=== PATIENT | female | born 1940 | race Caucasian/White ===

== ENCOUNTER 2016-07-23 07:19 | Outpatient (CLI) | payer MEDICARE, OTHER ==
[2016-07-23 09:36] LABS: Hemoglobin A1c 5.1 % (4.0-6.0)
== END 2016-07-23 07:20 | disposition home or self-care (01) ==
LOC: NAV LABSP 07:19
PROVIDERS: ATTEND Internal Medicine
DX: Z51.81 Encounter for therapeutic drug level monitoring (principal); Z79.01 Long term (current) use of anticoagulants; E10.9 Type 1 diabetes mellitus without complications; E78.00 Pure hypercholesterolemia, unspecified; I10 Essential (primary) hypertension
CPT/HCPCS: 36415; 83036

== ENCOUNTER 2016-10-15 07:42 | Outpatient (CLI) | payer MEDICARE, OTHER ==
[2016-10-15 09:28] LABS: #Eosinphils 0.1 thou/uL (0.0-0.7); #Lymphocytes 0.9 thou/uL (1.20-3.40); #Monocytes 0.3 thou/uL (0.11-0.59); #Neutrophils 2.1 thou/uL (1.40-6.50); %Basophils 0.8 % (0.0-1.0); %Eosinophils 2.3 % (0.0-10.0); %Lymphocytes 26.6 % (21.0-51.0); %Monocytes 9.8 % (0.0-10.0); %Neutrophils 60.5 % (42.0-75.0); ALT (SGPT) 25 U/L (0-55); AST (SGOT) 24 U/L (5-34); Albumin 3.8 g/dL (3.4-4.8); Alkaline Phosphatase 76 U/L (40-150); Anion Gap 16 mmol/L (10-20); BUN (Urea Nitrogen) 11 mg/dL (9.8-20.1); Bilirubin, Total 0.5 mg/dL (0.2-1.2); Calc. Creatinine Clearance 0 mL/min (70-130); Calcium 9.3 mg/dL (7.8-10.44); Carbon Dioxide 23 mmol/L (23-31); Chloride 106 mmol/L (98-107); Cholesterol 144 mg/dL (< 200 Desired); Estimated GFR-MDRD 76; Globulin 2.5 g/dL (2.4-3.5); Glucose 83 mg/dL (83-110); HDL Cholesterol 48 mg/dL (>60 Neg Risk); Hemoglobin 13.2 g/dL (12.0-16.0); LDL Cholesterol, Calculated 83 mg/dL; Mean Corpuscular HGB CONC 32.2 g/dL (32.0-36.0); Mean Corpuscular Hemoglobin 33.7 pg (27.0-31.0); Mean Platelet Volume 7.9 fL (7.4-10.4); Platelet Count 111 thou/uL (130-400); Potassium 4.5 mmol/L (3.5-5.1); Protein, Total 6.3 g/dL (5.8-8.1); RBC Distribution Width 12.6 % (11.5-14.5); Red Blood Cell (RBC) Count 3.92 mill/uL (4.20-5.40); Sodium 140 mmol/L (136-145); Triglycerides 67 mg/dL (Less than 150); White Blood Cell (WBC) Count 3.5 thou/uL (4.8-10.8)
[2016-10-15 09:32] LABS: Hemoglobin A1c 4.9 % (4.0-6.0)
== END 2016-10-15 07:43 | disposition home or self-care (01) ==
LOC: NAV LABSP 07:42
PROVIDERS: ATTEND Internal Medicine
DX: E78.00 Pure hypercholesterolemia, unspecified (principal); E10.9 Type 1 diabetes mellitus without complications; I10 Essential (primary) hypertension; Z79.01 Long term (current) use of anticoagulants
CPT/HCPCS: 36415; 80053; 80061; 83036; 85025

== ENCOUNTER 2016-10-20 07:18 | Outpatient (CLI) | payer MEDICARE, OTHER ==
[2016-10-20 11:14] LABS: #Eosinphils 0.1 thou/uL (0.0-0.7); #Lymphocytes 0.6 thou/uL (1.20-3.40); #Monocytes 0.3 thou/uL (0.11-0.59); #Neutrophils 2.5 thou/uL (1.40-6.50); %Basophils 0.6 % (0.0-1.0); %Eosinophils 2.9 % (0.0-10.0); %Lymphocytes 15.6 % (21.0-51.0); %Monocytes 9.5 % (0.0-10.0); %Neutrophils 71.4 % (42.0-75.0); Mean Corpuscular HGB CONC 31.7 g/dL (32.0-36.0); Mean Platelet Volume 7.2 fL (7.4-10.4); Platelet Count 105 thou/uL (130-400); RBC Distribution Width 12.2 % (11.5-14.5); Red Blood Cell (RBC) Count 3.64 mill/uL (4.20-5.40); White Blood Cell (WBC) Count 3.5 thou/uL (4.8-10.8)
== END 2016-10-20 07:19 | disposition home or self-care (01) ==
LOC: NAV LABSP 07:18
PROVIDERS: ATTEND Internal Medicine
DX: I48.91 Unspecified atrial fibrillation (principal); M81.0 Age-related osteoporosis without current pathological fracture; I10 Essential (primary) hypertension; E11.9 Type 2 diabetes mellitus without complications; R05 Cough; R52 Pain, unspecified
CPT/HCPCS: 36415; 85025

== ENCOUNTER 2017-01-14 07:36 | Outpatient (CLI) | payer MEDICARE, OTHER ==
[2017-01-14 08:36] LABS: Hemoglobin A1c 5.4 % (4.0-6.0)
== END 2017-01-14 07:37 | disposition home or self-care (01) ==
LOC: NAV LABSP 07:36
PROVIDERS: ATTEND Internal Medicine
DX: E78.00 Pure hypercholesterolemia, unspecified (principal); E10.9 Type 1 diabetes mellitus without complications; I10 Essential (primary) hypertension; Z79.01 Long term (current) use of anticoagulants
CPT/HCPCS: 36415; 83036

== ENCOUNTER 2017-04-06 07:50 | Outpatient (CLI) | payer MEDICARE, MEDICAID ==
[2017-04-06 08:19] LABS: Hemoglobin A1c 5.2 % (4.0-6.0)
[2017-04-06 08:21] LABS: ALT (SGPT) 20 U/L (8-55); AST (SGOT) 20 U/L (5-34); Albumin 3.6 g/dL (3.4-4.8); Alkaline Phosphatase 70 U/L (40-150); Anion Gap 13 mmol/L (10-20); BUN (Urea Nitrogen) 13 mg/dL (9.8-20.1); Bilirubin, Total 0.4 mg/dL (0.2-1.2); Calc. Creatinine Clearance 0 mL/min (70-130); Calcium 9.6 mg/dL (7.8-10.44); Carbon Dioxide 26 mmol/L (23-31); Cardiac Risk 3.9 (Less than 4.5); Chloride 106 mmol/L (98-107); Cholesterol 166 mg/dl (< 200 Desired); Estimated GFR-MDRD 68; Globulin 2.4 g/dL (2.4-3.5); Glucose 85 mg/dL (83-110); HDL Cholesterol 43 mg/dL (>60 Neg Risk); LDL Cholesterol, Calculated 106 mg/dL; Potassium 4.5 mmol/L (3.5-5.1); Sodium 140 mmol/L (136-145); Triglycerides 84 mg/dL (Less than 150)
[2017-04-06 08:44] LABS: #Monocytes 0.2 thou/uL (0.11-0.59); #Neutrophils 1.6 thou/uL (1.40-6.50); %Basophils 0.7 % (0.0-1.0); %Eosinophils 1.8 % (0.0-10.0); %Lymphocytes 30.7 % (21.0-51.0); %Monocytes 8.1 % (0.0-10.0); %Neutrophils 58.7 % (42.0-75.0); Hemoglobin 11.9 g/dL (12.0-16.0); Mean Corpuscular HGB CONC 31.7 g/dL (32.0-36.0); Mean Corpuscular Hemoglobin 32.5 pg (27.0-31.0); Mean Platelet Volume 9.2 fL (7.4-10.4); Platelet Count 104 thou/uL (130-400); RBC Distribution Width 12.3 % (11.5-14.5); Red Blood Cell (RBC) Count 3.66 mill/uL (4.20-5.40); White Blood Cell (WBC) Count 2.7 thou/uL (4.8-10.8)
[2017-04-06 09:32] LABS: Anisocytosis SLIGHT = 6-15 cells (100X) (0-5/hpf); Macrocytosis SLIGHT = 6-15 cells (100X) (0-5/hpf)
[2017-04-06 09:33] LABS: PLT Morphology Comment Appears Decreased
[2017-04-06 09:37] LABS: #Lymphocytes 0.8 thou/uL (1.20-3.40)
[2017-04-06 09:43] LABS: RBC Morphology Normal
== END 2017-04-06 07:51 | disposition home or self-care (01) ==
LOC: NAVSJIPCSP 07:50 → NAV LABSP 07:51
PROVIDERS: ATTEND Internal Medicine
DX: Z51.81 Encounter for therapeutic drug level monitoring (principal); Z79.899 Other long term (current) drug therapy
CPT/HCPCS: 80053; 80061; 83036; 85025

== ENCOUNTER 2017-06-16 20:08 | Emergency (ER) | payer MEDICARE, OTHER | END 2017-06-16 21:52 | LOC: NAV ERS 20:08 | DX: R13.10 Dysphagia, unspecified (principal); I10 Essential (primary) hypertension; E11.9 Type 2 diabetes mellitus without complications; F20.9 Schizophrenia, unspecified | CPT/HCPCS: 99284 ==

== ENCOUNTER 2017-09-27 16:10 | Inpatient (IN) | payer MEDICARE, MEDICAID ==
[2017-09-27 16:36] LABS: Bilirubin Negative (Negative); Blood, Urine Small (Negative); Glucose, Urine (Dipstick) Negative (Negative); Leukocyte Large (Negative); Nitrite Positive (Negative); Protein, Urine (Dipstick) 100 mg/dL (Neg-Trace); Specific Gravity, Urine 1.025 (1.005-1.030)
[2017-09-27 16:37] LABS: Bacteria/HPF 4+ HPF (None Seen); Clarity Hazy (Clear); RBC/HPF 0-3 HPF (0-3); Squamous Epithelial 0-3 HPF (0-3)
--- NOTE | 2017-09-27 17:01 | RAD ---
PORTABLE FRONTAL CHEST RADIOGRAPH 09/27/17 COMPARISON: 08/19/15 HISTORY: Short of breath/dyspnea. FINDINGS: The cardiac silhouette is prominent. There is pulmonary vascular congestion. There is new increased d ensity in the right lung base suggesting right pleural fluid and nonspecific right pulmonary parenchy mal opacity. IMPRESSION: Pulmonary vascular congestion and prominence of the cardiac silhouette. Increased pleural and parench ymal opacity in the right lung base suggests pulmonary edema. Right basilar infectious pneumonitis or aspiration cannot be excluded. Followup to resolution advised following treatment. POS: [facility]
[2017-09-27 17:13] LABS: ALT (SGPT) 29 U/L (8-55); AST (SGOT) 39 U/L (5-34); Albumin 3.7 g/dL (3.4-4.8); Alkaline Phosphatase 80 U/L (40-150); Anion Gap 14 mmol/L (10-20); BUN (Urea Nitrogen) 16 mg/dL (9.8-20.1); Bilirubin, Total 0.7 mg/dL (0.2-1.2); Calc. Creatinine Clearance 0 mL/min (70-130); Calcium 9.6 mg/dL (7.8-10.44); Carbon Dioxide 26 mmol/L (23-31); Chloride 102 mmol/L (98-107); Estimated GFR-MDRD 65; Globulin 2.6 g/dL (2.4-3.5); Glucose 86 mg/dL (83-110); Potassium 3.9 mmol/L (3.5-5.1); Protein, Total 6.3 g/dL (6.0-8.3); Sodium 138 mmol/L (136-145)
[2017-09-27 17:15] LABS: CKMB 0.7 ng/mL (0-6.6)
[2017-09-27 17:16] LABS: Critical Call Chem Troponin I 0; Troponin I 0.333 ng/mL (< 0.028)
[2017-09-27 17:21] LABS: #Lymphocytes 0.5 thou/uL (1.20-3.40); #Monocytes 0.4 thou/uL (0.11-0.59); #Neutrophils 3.3 thou/uL (1.40-6.50); %Basophils 0.5 % (0.0-1.0); %Eosinophils 0.1 % (0.0-10.0); %Lymphocytes 11.3 % (21.0-51.0); %Monocytes 10.1 % (0.0-10.0); %Neutrophils 78.1 % (42.0-75.0); Differential Comment SCANNED; Hemoglobin 11.4 g/dL (12.0-16.0); Mean Corpuscular HGB CONC 32.1 g/dL (32.0-36.0); Mean Corpuscular Hemoglobin 31.7 pg (27.0-31.0); Mean Corpuscular Volume 98.7 fl (81.0-99.0); Mean Platelet Volume 9.6 fL (7.4-10.4); PLT Morphology Comment Appears Adequate; Platelet Count 103 thou/uL (130-400); RBC Distribution Width 12.7 % (11.5-14.5); Red Blood Cell (RBC) Count 3.58 mill/uL (4.20-5.40); White Blood Cell (WBC) Count 4.2 thou/uL (4.8-10.8)
[2017-09-27] MEDS ORDERED: Furosemide 40 MG TAB ONE (17:45)
[2017-09-27] MEDS ORDERED: Furosemide 40 MG/4 ML VIAL ONE (17:45)
[2017-09-27] MEDS ORDERED: Sulfameth/Trimethoprim DS 800-160mg TAB ONE (17:45)
[2017-09-27] MEDS ORDERED: Ondansetron ODT 4 MG TAB SL PRN (19:24)
[2017-09-27] MEDS ORDERED: Ondansetron HCl/PF 4 MG/2 ML Vial IVP PRN (19:24)
[2017-09-27] MEDS ORDERED: Acetaminophen 325 MG TAB PO PRN (19:24)
[2017-09-27] MEDS ORDERED: Ondansetron ODT 4 MG TAB PO PRN (20:08)
[2017-09-27] MEDS ORDERED: Mag-Al 1200 mg/1200 mg/30 ML UDCUP PO PRN (20:14)
[2017-09-27] MEDS ORDERED: Dextrose 5% in Water 1,000 ML IV PRN (20:17)
[2017-09-27] MEDS ORDERED: Dextrose 50% Abboject 50 ML SYRINGE SLOW IVP PRN (20:17)
[2017-09-27] MEDS ORDERED: HumaLOG 300 UNITS/3 ML VIAL SC PRN (20:17)
[2017-09-27] MEDS: Amantadine HCl 100 mg Capsule PO SCH (21:10)
[2017-09-27] MEDS: Aripiprazole 10 MG TAB PO SCH (21:10)
[2017-09-27] MEDS: Dicyclomine 20 MG TAB PO SCH (21:11)
[2017-09-27] MEDS: Milk Of Magnesia 30 ML UDCUP PO SCH (21:11)
[2017-09-27] MEDS: busPIRone HCl 5 MG TAB PO SCH (21:11)
[2017-09-27] MEDS: Famotidine 20 MG TAB PO SCH (21:11)
[2017-09-27] MEDS: Melatonin 3 MG TAB PO SCH (21:11)
[2017-09-27] MEDS: Oxybutynin 5 MG TAB PO SCH (21:12)
[2017-09-27] MEDS: Metoprolol Tartrate 25 MG TAB PO SCH (21:12)
--- NOTE | 2017-09-27 22:45 | HP ---
DATE OF ADMISSION: 09/27/2017 HISTORY OF PRESENT ILLNESS: The patient is a 77-year-old white female living at [facility] secondary to Parkinson's disease, schizophrenia, diabetes type 2 and hypertension. She was transfe rred to the emergency room today, because of a several day history of increasing edema, hypertension, and subsequent weakness secondary to leg pain and exertional dyspnea. She has had some anxiety sinc e the of her roommate at the intermediate and has been unable to give significant history. She denies any chest pain or palpitations. She denies any noncompliance to her diet or medications. e has two-pillow orthopnea. She has had some edema. PAST MEDICAL HISTORY: Remarkable for hypertension, hyperlipidemia, Parkinson's disease, recurrent ve rtigo, mild dementia, schizophrenia, atrial fibrillation, gastroesophageal reflux. PAST SURGICAL HISTORY: Positive for bilateral hip replacement, cholecystectomy. SOCIAL HISTORY: She is a nonsmoker, nondrinker, living in a intermediate. ALLERGIES: No known allergies. MEDICATIONS: On admission included Januvia 100 mg daily, aspirin 81 daily, Fosamax 70 weekly, mecliz ine 25 three times daily, metoprolol 25 twice daily, Bentyl 20 mg 3 times daily, Amaryl 4 mg daily, m elatonin 10 mg nightly, oxybutynin 5 mg daily, Abilify 30 mg daily, Amantadine 100 mg twice daily, lo razepam 0.5 mg twice daily, Zoloft 100 mg twice daily, buspirone 10 mg twice daily. REVIEW OF SYSTEMS: HEENT: She denies any headache. She does have recurrent dizziness, fairly stable on the meclizine 2 5 three times daily. She has no change in her vision or hearing, hoarseness or dysphagia. PULMONARY: She has had some mild cough, but no sputum production. Has noticed increased orthopnea. CARDIOVASCULAR: She denies chest pain, palpitations. Does have two-pillow orthopnea. Does has had some transient edema. GASTROINTESTINAL: She denies nausea, vomiting, diarrhea, constipation, abdominal pain. GENITOURINARY: Denies dysuria, hematuria, nocturia. MUSCULOSKELETAL: Denies dyspnea or swelling in joints or extremities. NEUROLOGIC: Denies localized numbness, weakness in arms or extremities. PHYSICAL EXAMINATION: GENERAL: Patient is an elderly white female, in no acute distress. This time with some mild dyspnea on exertion. She is oriented x3 and a fair historian. VITAL SIGNS: Blood pressure of 188/86, temperature 97.9, pulse 72, respirations 21, O2 sats 93%. HEENT: Pupils are equal, round, and react to light and accommodation. Sclerae are anicteric, Conjun ctivae pale. Oral mucous membranes well hydrated. NECK: Supple, no nodes or masses. JVPs are not elevated. Carotids 2+ and equal without bruits. LUNGS: Show decreased breath sounds in the bases, no wheezes, few rales above the bases. CARDIAC: Displays irregularly irregular rhythm. No gallops or murmurs. PMI in the fifth intercosta l space, 1 cm left midclavicular line. ABDOMEN: Soft, nontender with no masses or organomegaly. SKIN/EXTREMITIES: Display trace edema, no clubbing, cyanosis. NEUROLOGICAL: Intact. LABORATORY DATA AND X-RAY FINDINGS: Chest x-ray shows cardiomegaly with bilateral effusions, pulmona ry edema. White count 4200, hematocrit 35, hemoglobin 11. Troponin 0.33, MB 0.7. BNP 1030. Sodium 138, potassium 3.9, chloride 102, bicarbonate 26, BUN 16, creatinine 0.85, glucose 86. Accu-Cheks 1 23-129. Liver function studies normal. Urinalysis does show 11-20 white cells, large leukocytes, 4+ bacteria. ASSESSMENT AND PLAN: Uncontrolled hypertension with subsequent decompensation congestive heart failu re, pulmonary edema, which responded to IV Lasix in the emergency room, but is still some mild respir atory distress, still hypertensive. She has been restarted back on her previous medications of metop rolol 25 twice daily. This will be increased to 50 twice daily and she will have echocardiogram done to evaluate for possible systolic and/or diastolic heart failure. She will also be continued on fur osemide 40 mg IV push tonight and in the a.m. We will have repeat basic metabolic profile, BNP in the a.m. as well as repeat troponin, although most likely does not show any evidence of acute ischemic e vent on the EKG, which only shows atrial fibrillation with mild T-wave inversions, nonspecific ST abn ormalities. We will continue on the rate control with metoprolol. We will also start on anticoagula tion here in the hospital on Apixaban 2.5 mg twice daily. She will also be started on Accu-Cheks and mild sliding scale and restarted back on her glimepiride 8 mg daily, and alogliptin 25 mg daily. Fi elizabeth, she will be continued on her antipsychotic medications of Abilify 5 mg daily, Buspirone 10 mg twice daily and her anti-Parkinson's medicines of Amantadine 100 twice daily and sertraline 100 twice daily. She is not to be resuscitated at her request, but will be treated aggressively otherwise, ex cept for a DNR status.
[2017-09-27] MEDS ORDERED: Furosemide 40 MG/4 ML VIAL SLOW IVP SCH (23:15)
[2017-09-28] MEDS: Furosemide 40 MG/4 ML VIAL SLOW IVP SCH ×2 (05:22→14:08)
[2017-09-28 05:33] LABS: Band 6 % (5-11); Hemoglobin 12.2 g/dL (12.0-16.0); Lymphocytes 13 % (21-51); MDiff Complete? YES; Mean Corpuscular HGB CONC 32.6 g/dL (32.0-36.0); Mean Corpuscular Hemoglobin 31.7 pg (27.0-31.0); Mean Corpuscular Volume 97.2 fl (81.0-99.0); Mean Platelet Volume 9.1 fL (7.4-10.4); Monocytes 12 % (0-10); Neutrophil 69 % (42-75); PLT Morphology Comment Appears Adequate; Platelet Count 107 thou/uL (130-400); RBC Distribution Width 12.3 % (11.5-14.5); RBC Morphology Normal; Red Blood Cell (RBC) Count 3.87 mill/uL (4.20-5.40); White Blood Cell (WBC) Count 3.9 thou/uL (4.8-10.8)
[2017-09-28 05:42] LABS: ALT (SGPT) 29 U/L (8-55); AST (SGOT) 39 U/L (5-34); Albumin 3.8 g/dL (3.4-4.8); Alkaline Phosphatase 81 U/L (40-150); Anion Gap 16 mmol/L (10-20); BUN (Urea Nitrogen) 13 mg/dL (9.8-20.1); Bilirubin, Total 0.9 mg/dL (0.2-1.2); Calc. Creatinine Clearance 71 mL/min (70-130); Calcium 10.1 mg/dL (7.8-10.44); Carbon Dioxide 27 mmol/L (23-31); Chloride 98 mmol/L (98-107); Estimated GFR-MDRD 63; Globulin 3.3 g/dL (2.4-3.5); Glucose 107 mg/dL (83-110); Potassium 3.5 mmol/L (3.5-5.1); Protein, Total 7.1 g/dL (6.0-8.3); Sodium 137 mmol/L (136-145)
[2017-09-28] MEDS ORDERED: Cipro 250 MG TAB PO SCH (06:15)
--- NOTE | 2017-09-28 07:00 | PRG ---
DATE OF SERVICE: 09/28/2017 SUBJECTIVE: The patient feels much better. Decreased cough and dyspnea. Slept well through the [facility]. No headaches, dizziness or chest pain and stable 1-2 pillow orthopnea. OBJECTIVE: VITAL SIGNS: Blood pressure down to 150/69, O2 sats 92% on room air, respirations 20, pulse 73, temp erature was up to 100.1 last night. LABORATORY: Laboratory this morning shows a white count 3900, hematocrit 37, hemoglobin 12, sodium 1 37, potassium down 3.5, chloride 98, bicarbonate 27, BUN 13, creatinine 0.87, glucose 107. BNP is do wn to 797 from 1030. Troponin level is still pending. Intake and output shows 520 in, 3725 out. Chest x-ray is pending this morning. LUNGS: Lungs show decreased breath sounds in the bases, but no rales or rhonchi. CARDIAC: Cardiac examination shows irregular irregular rhythm. No gallops or murmurs. SKIN AND EXT REMITIES: Skin and extremities show no edema. ASSESSMENT: 1. Atrial fibrillation with rate control and anticoagulation. 2. Uncontrolled hypertension with probable diastolic heart failure with possible acute systolic deco mpensation, awaiting results of echocardiogram, but responding well to IV furosemide with significant diuresis and improvement in BNP and physical exam. We will continue IV furosemide today and check a BMP in the a.m. and possibly change to oral furosemide. 3. Uncontrolled hypertension, now controlled on metoprolol. 4. Bipolar disorder and schizophrenia, controlled on Abilify. 5. Diabetes type 2, stable. 6. Parkinson's disease, stable. 7. Urinary tract infection with culture pending, on Cipro 250 twice daily. PLAN: 1. Continue Lasix 40 mg IV twice daily today and then switch to oral tomorrow. 2. Check echocardiogram. 3. Repeat basic metabolic profile in the a.m. as well as BNP. 4. Check troponin today. 5. Start PT, OT. 6. Start on potassium 20 mEq daily orally. 7. Continue psych medications. 8. Continue Accu-Cheks and mild sliding scale and continue on home medications of glimepiride. 9. Follow up with Dr. Hu tomorrow.
[2017-09-28] MEDS: Glimepiride 2 MG TAB PO SCH (08:33)
[2017-09-28] MEDS: Potassium Chloride 20 MEQ TAB PO SCH (08:33)
[2017-09-28] MEDS: Amantadine HCl 100 mg Capsule PO SCH ×2 (08:34→20:07)
[2017-09-28] MEDS: Aspirin 81 mg Enteric Coated Tablet PO SCH (08:34)
[2017-09-28] MEDS: Dicyclomine 20 MG TAB PO SCH ×3 (08:34→20:07)
[2017-09-28] MEDS: Alogliptin 25 MG TAB PO SCH (08:34)
[2017-09-28] MEDS: busPIRone HCl 5 MG TAB PO SCH ×2 (08:34→20:07)
[2017-09-28] MEDS: Famotidine 20 MG TAB PO SCH ×2 (08:34→20:08)
[2017-09-28] MEDS: Metoprolol Tartrate 25 MG TAB PO SCH ×2 (08:34→20:09)
[2017-09-28] MEDS: Milk Of Magnesia 30 ML UDCUP PO SCH ×2 (08:35→20:08)
[2017-09-28] MEDS ORDERED: Acetaminophen 325 MG TAB PO PRN (13:31)
[2017-09-28] MEDS ORDERED: Sodium Chloride 0.9% 10 ML ONE (14:04)
--- NOTE | 2017-09-28 15:49 | RAD ---
ONE VIEW CHEST: HISTORY: Congestive heart failure. COMPARISON: 09/27/2017 FINDINGS: Limited evaluation due to technique. Heart is enlarged. Pulmonary vessels are slightly prominent. There are bibasilar pleural and parenchymal changes. Stable opacification of the right lung base. N o pneumothorax or osseous abnormalities. IMPRESSION: 1. Cardiomegaly. 2. Pulmonary vascular congestion. 3. Bibasilar pleural and parenchymal changes. 4. Congestive heart failure. Continued surveillance. POS: [facility]
[2017-09-28] MEDS: Cipro 250 MG TAB PO SCH (20:07)
[2017-09-28] MEDS: Aripiprazole 10 MG TAB PO SCH (20:07)
[2017-09-28] MEDS: Melatonin 3 MG TAB PO SCH (20:08)
[2017-09-28] MEDS: Oxybutynin 5 MG TAB PO SCH (20:09)
[2017-09-29] MEDS ORDERED: Sodium Chloride 0.9% 10 ML ONE (05:13)
[2017-09-29] MEDS: Furosemide 40 MG/4 ML VIAL SLOW IVP SCH (05:20)
[2017-09-29] MEDS: Cipro 250 MG TAB PO SCH (05:36)
[2017-09-29 06:09] LABS: Anion Gap 16 mmol/L (10-20); BUN (Urea Nitrogen) 16 mg/dL (9.8-20.1); Calc. Creatinine Clearance 65 mL/min (70-130); Calcium 10.6 mg/dL (7.8-10.44); Carbon Dioxide 26 mmol/L (23-31); Chloride 99 mmol/L (98-107); Estimated GFR-MDRD 60; Glucose 100 mg/dL (83-110); Potassium 3.7 mmol/L (3.5-5.1); Sodium 137 mmol/L (136-145)
[2017-09-29 06:10] LABS: Troponin I 0.086 ng/mL (< 0.028)
[2017-09-29] MEDS: busPIRone HCl 5 MG TAB PO SCH ×2 (08:13→20:47)
[2017-09-29] MEDS: Potassium Chloride 20 MEQ TAB PO SCH (08:13)
[2017-09-29] MEDS: Aspirin 81 mg Enteric Coated Tablet PO SCH (08:13)
[2017-09-29] MEDS: Glimepiride 2 MG TAB PO SCH (08:13)
[2017-09-29] MEDS: Amantadine HCl 100 mg Capsule PO SCH ×2 (08:13→20:46)
[2017-09-29] MEDS: Alogliptin 25 MG TAB PO SCH (08:13)
[2017-09-29] MEDS: Nitrofurantoin Macrocrystal 50 MG CAP PO SCH ×2 (08:14→20:46)
[2017-09-29] MEDS: Famotidine 20 MG TAB PO SCH ×2 (08:14→20:47)
[2017-09-29] MEDS: Metoprolol Tartrate 25 MG TAB PO SCH ×2 (08:14→20:48)
[2017-09-29] MEDS: Dicyclomine 20 MG TAB PO SCH ×3 (08:14→20:48)
[2017-09-29] MEDS: Milk Of Magnesia 30 ML UDCUP PO SCH ×2 (08:14→20:52)
--- NOTE | 2017-09-29 13:21 | PRG ---
DATE OF SERVICE: 09/29/2017 SUBJECTIVE: Ms. Hall is doing well. Denies any complaints. She apparently ambulated with therapy . She states her leg swelling has pretty much resolved. She denies any chest pain or shortness of b reath. I advised her that I am going to switch her to oral antibiotics and oral Lasix. Remove her F oley catheter and hopefully get her discharged tomorrow. OBJECTIVE: VITAL SIGNS: She is afebrile, heart rate 67, respirations 20, oxygen saturation 93% on room air, blo od pressure 133/68. CARDIOVASCULAR SYSTEM: S1, S2 plus. RESPIRATORY SYSTEM: Normal vesicular breath sounds. ABDOMEN: Soft, nontender, bowel sounds heard in all quadrants. EXTREMITIES: Without cyanosis or clubbing. Trace edema. Weight has gone down from 182-178 pounds. IMAGING DATA: Echocardiogram shows ejection fraction of 50%-55% with mild left ventricular hypertrop hy, mild to moderate tricuspid regurgitation, mild pulmonic regurgitation, and mild mitral regurgitat ion. She was in atrial fibrillation throughout the study. IMPRESSION: 1. Escherichia coli urinary tract infection. 2. Likely diastolic congestive heart failure. 3. Atrial fibrillation. 4. Gastroesophageal reflux disease. 5. Mild dementia. 6. Dyslipidemia. 7. Hypertension. PLAN: 1. Switch to p.o. Lasix. 2. Decrease potassium to 10 mg daily. 3. Discontinue Cipro and start her on Macrobid. 4. Continue therapy. 5. Discontinue Lott catheter. 6. Recheck laboratory values in the morning and anticipate discharging her back to the [facility] tomorrow.
[2017-09-29] MEDS: Oxybutynin 5 MG TAB PO SCH (20:47)
[2017-09-29] MEDS: Melatonin 3 MG TAB PO SCH (20:47)
[2017-09-29] MEDS: Aripiprazole 10 MG TAB PO SCH (20:49)
[2017-09-30 05:11] VITALS: BMI 28.1
[2017-09-30] MEDS ORDERED: Potassium Chloride 20 MEQ TAB PO SCH (08:00)
[2017-09-30 08:20] VITALS: BP 126/74; TEMP 95.9
[2017-09-30] MEDS: Milk Of Magnesia 30 ML UDCUP PO SCH (08:46)
[2017-09-30] MEDS: Glimepiride 2 MG TAB PO SCH (08:47)
[2017-09-30] MEDS: Nitrofurantoin Macrocrystal 50 MG CAP PO SCH (08:48)
[2017-09-30] MEDS: Famotidine 20 MG TAB PO SCH (08:49)
[2017-09-30] MEDS: Metoprolol Tartrate 25 MG TAB PO SCH (08:49)
[2017-09-30] MEDS: busPIRone HCl 5 MG TAB PO SCH (08:49)
[2017-09-30] MEDS: Amantadine HCl 100 mg Capsule PO SCH (08:49)
[2017-09-30] MEDS: Alogliptin 25 MG TAB PO SCH (08:49)
[2017-09-30] MEDS: Aspirin 81 mg Enteric Coated Tablet PO SCH (08:49)
[2017-09-30] MEDS: Dicyclomine 20 MG TAB PO SCH (08:49)
[2017-09-30] MEDS ORDERED: Furosemide 20 MG TAB PO SCH (09:00)
--- NOTE | 2017-09-30 09:43 | DIS ---
DATE OF ADMISSION: 09/27/2017 DATE OF DISCHARGE: 09/30/2017 PRINCIPAL DIAGNOSES: 1. Acute congestive heart failure, likely diastolic, resolved. 2. Urinary tract infection with Escherichia coli on Macrobid. 3. Mild Alzheimer's type dementia. 4. Atrial fibrillation. 5. Gastroesophageal reflux disease. 6. Dyslipidemia. 7. Hypertension. COMPLICATIONS: None. ADVERSE REACTIONS: None. PROCEDURES: None. CONSULTATIONS: None. HOSPITAL COURSE: The patient was admitted by Dr. Boone Price on 09/27/2017 with increasing edema, shortness of breath, and weakness. Evaluation showed elevated BNP and possible UTI. She was started on IV Cipro and IV Lasix. She responded very well. She has been switched to oral Lasix and the uri ne cultures grew E. coli which is resistant to Cipro. She has been switched to Macrobid. She has be en ambulating with assistant strength coach and she is off her oxygen. Her leg swelling has resolved. She has lost about 4 pounds and she was deemed stable for discharge back to the nursing facility. DISCHARGE MEDICATIONS: 1. Januvia 100 mg daily. 2. Aspirin 81 mg daily. 3. Fosamax 70 mg every weekly. 4. Meclizine 25 mg t.i.d. p.r.n. 5. Metoprolol 25 mg b.i.d. 6. Bentyl 20 mg t.i.d. 7. Amaryl 4 mg daily. 8. Melatonin 10 mg at night. 9. Oxybutynin 5 mg daily. 10. Abilify 30 mg daily. 11. Amantadine 100 mg b.i.d. that is for Parkinson's. 12. Zoloft 100 mg a day. 13. BuSpar 10 mg b.i.d. 14. Lasix 20 mg daily. 15. Potassium 10 mEq daily. She is to be on an 1800 calorie Heart healthy ADA diet. She is to get BMP rechecked on 10/05/2017. PT/OT to evaluate and treat her in the nursing facility. She will be followed by Dr. Boone hodges the nursing facility. No prescriptions needed. PHYSICAL EXAMINATION: VITAL SIGNS: On the day of discharge, she is afebrile, heart rate 64, respirations 20, oxygen satura tion 94% on room air, blood pressure 126/74. CARDIOVASCULAR SYSTEM: S1 and S2 plus. Rate and rhythm regular. RESPIRATORY SYSTEM: Normal vesicular breath sounds. ABDOMEN: Soft, nontender, bowel sounds heard in all quadrants. EXTREMITIES: Without cyanosis or clubbing. Peripheral pulses are palpable. CENTRAL NERVOUS SYSTEM: Grossly nonfocal. For full details, please see chart.
== END 2017-09-30 11:05 | DRG 689 ==
LOC: NAV ERS 16:10 → NAV ACUTE 18:48
PROVIDERS: ADMIT Internal Medicine; ATTEND Internal Medicine
DX: N39.0 Urinary tract infection, site not specified (principal); I50.31 Acute diastolic (congestive) heart failure; G20 Parkinson's disease; I48.91 Unspecified atrial fibrillation; I08.1 Rheumatic disorders of both mitral and tricuspid valves; F20.9 Schizophrenia, unspecified; E11.9 Type 2 diabetes mellitus without complications; B96.20 Unspecified Escherichia coli [E. coli] as the cause of diseases classified elsewhere; I11.0 Hypertensive heart disease with heart failure; E78.5 Hyperlipidemia, unspecified; G30.9 Alzheimer's disease, unspecified; F02.80 Dementia in other diseases classified elsewhere, unspecified severity, without behavioral disturbance, psychotic disturbance, mood disturbance, and anxiety; F41.9 Anxiety disorder, unspecified; K21.9 Gastro-esophageal reflux disease without esophagitis; Z66 Do not resuscitate; Z79.01 Long term (current) use of anticoagulants; F31.9 Bipolar disorder, unspecified; R42 Dizziness and giddiness
CPT/HCPCS: 36415; 36416; 51702; 71045; 80048; 80053; 81003; 81015; 82553; 83880; 84484; 85025; 87077; 87086; 87186; 93005; 96374; A4216; G8978-GP-CM; G8979-GP-CI; J1940

== ENCOUNTER 2018-04-10 11:40 | Emergency (ER) | payer MEDICARE, OTHER ==
[2018-04-10 12:39] LABS: #Lymphocytes 0.6 thou/uL (1.20-3.40); #Monocytes 0.3 thou/uL (0.11-0.59); #Neutrophils 4.5 thou/uL (1.40-6.50); %Basophils 0.5 % (0.0-1.0); %Eosinophils 0.4 % (0.0-10.0); %Lymphocytes 10.8 % (21.0-51.0); %Monocytes 6.1 % (0.0-10.0); %Neutrophils 82.2 % (42.0-75.0); Mean Corpuscular HGB CONC 30.4 g/dL (32.0-36.0); Mean Corpuscular Hemoglobin 28.6 pg (27.0-31.0); Mean Corpuscular Volume 94.1 fL (78.0-98.0); Mean Platelet Volume 6.6 fL (7.4-10.4); Platelet Count 180 thou/uL (130-400); RBC Distribution Width 14.4 % (11.5-14.5); Red Blood Cell (RBC) Count 3.83 mill/uL (4.20-5.40); White Blood Cell (WBC) Count 5.5 thou/uL (4.8-10.8)
[2018-04-10 12:43] LABS: Anion Gap 13 mmol/L (10-20); BUN (Urea Nitrogen) 18 mg/dL (9.8-20.1); CKMB 0.9 ng/mL (0-6.6); Calc. Creatinine Clearance 0 mL/min (70-130); Carbon Dioxide 25 mmol/L (23-31); Chloride 105 mmol/L (98-107); Estimated GFR-MDRD 71; Potassium 3.8 mmol/L (3.5-5.1); Sodium 139 mmol/L (136-145); Troponin I 0.018 ng/mL (< 0.028)
[2018-04-10 12:44] LABS: ALT (SGPT) 27 U/L (8-55); AST (SGOT) 28 U/L (5-34); Albumin 3.7 g/dL (3.4-4.8); Alkaline Phosphatase 78 U/L (40-150); Bilirubin, Total 0.5 mg/dL (0.2-1.2); CK (CPK) 43 U/L (29-168); Calcium 10.8 mg/dL (7.8-10.44); Globulin 3.3 g/dL (2.4-3.5); Glucose 88 mg/dL (83-110)
--- NOTE | 2018-04-10 13:22 | CT ---
CT BRAIN WITHOUT CONTRAST: Date: 04/10/18 HISTORY: TIA. FINDINGS: Comparison made with exam of 08/19/15. No evidence of infarct, hemorrhage, midline shift, or abnormal extra-axial fluid collections are seen . The ventricular size is appropriate and the basilar cisterns are patent. The bony calvarium is inta ct. The visualized paranasal sinuses and mastoid air cells are well aerated. IMPRESSION: No CT evidence of acute intracranial process. POS: [facility]
== END 2018-04-10 13:36 | disposition short-term general hospital (02) ==
LOC: NAV ERS 11:40
DX: G45.9 Transient cerebral ischemic attack, unspecified (principal); R00.1 Bradycardia, unspecified; I48.91 Unspecified atrial fibrillation; E10.9 Type 1 diabetes mellitus without complications; K21.9 Gastro-esophageal reflux disease without esophagitis; E78.5 Hyperlipidemia, unspecified; I10 Essential (primary) hypertension; M81.0 Age-related osteoporosis without current pathological fracture; F03.90 Unspecified dementia, unspecified severity, without behavioral disturbance, psychotic disturbance, mood disturbance, and anxiety; F31.9 Bipolar disorder, unspecified; F41.9 Anxiety disorder, unspecified; Z79.82 Long term (current) use of aspirin; Z79.899 Other long term (current) drug therapy
CPT/HCPCS: 36415; 70450; 80053; 82553; 84484; 85025; 93005

== ENCOUNTER 2018-06-12 14:41 | Outpatient (CLI) | payer MEDICARE, OTHER ==
[2018-06-12 15:12] LABS: ALT (SGPT) 60 U/L (8-55); AST (SGOT) 63 U/L (5-34); Albumin 4.1 g/dL (3.4-4.8); Alkaline Phosphatase 108 U/L (40-150); Anion Gap 17 mmol/L (10-20); BUN (Urea Nitrogen) 15 mg/dL (9.8-20.1); Bilirubin, Total 0.5 mg/dL (0.2-1.2); Calc. Creatinine Clearance 0 mL/min (70-130); Calcium 10.1 mg/dL (7.8-10.44); Carbon Dioxide 22 mmol/L (23-31); Chloride 103 mmol/L (98-107); Estimated GFR-MDRD 57; Glucose 166 mg/dL (83-110); Potassium 4.2 mmol/L (3.5-5.1); Protein, Total 7.1 g/dL (6.0-8.3); Sodium 138 mmol/L (136-145)
[2018-06-12 15:17] LABS: Follow-up Chemistry Comp? YES; Follow-up Result - Chemistry REPORT FAXED
[2018-06-12 19:26] LABS: Bilirubin Negative (Negative); Blood, Urine Negative (Negative); Clarity Clear (Clear); Glucose, Urine (Dipstick) Negative (Negative); Leukocyte Trace (Negative); Nitrite Negative (Negative); Protein, Urine (Dipstick) Negative (Neg-Trace)
[2018-06-12 20:20] LABS: Specific Gravity, Urine Greater/Equal 1.030 (1.005-1.030)
[2018-06-12 20:23] LABS: Bacteria/HPF Rare-Few HPF (None Seen); RBC/HPF None Seen HPF (0-3); WBC/HPF 0-3 HPF (0-3)
[2018-06-12 20:24] LABS: Crystals/HPF RARE CA OXALATE HPF (Negative)
[2018-06-12 20:25] LABS: Follow-up Result - Urinalysis REPORT FAXED; Follow-up UA Comp? YES
== END 2018-06-12 14:42 | disposition home or self-care (01) ==
LOC: NAV NNR 14:41
PROVIDERS: ATTEND Internal Medicine
DX: I48.91 Unspecified atrial fibrillation (principal); E11.9 Type 2 diabetes mellitus without complications; R41.82 Altered mental status, unspecified; R11.2 Nausea with vomiting, unspecified; R55 Syncope and collapse
CPT/HCPCS: 36415; 80053; 81003; 81015; 87086

== ENCOUNTER 2018-10-02 10:21 | Outpatient (CLI) | payer MEDICARE, MEDICAID ==
[~2018-10-02 10:21] MED LIST: Iopamidol 370 76% 100 ML VIAL ONE
--- NOTE | 2018-10-02 13:47 | CT ---
CT ABDOMEN AND PELVIS WITH IV CONTRAST: HISTORY: Elevated LFTs, dementia, and Parkinson's disease. COMPARISON: Comparison is made to the CT stone protocol of 11/07/2010. FINDINGS: A moderate to large hiatal hernia is again seen. There are bilateral pleural effusions, right larger than left, with adjacent consolidated changes on the right. The patient is post cholecystectomy. No hepatic mass or abnormal biliary ductal dilatation is seen. The liver measures 16.8 cm in length. The spleen, pancreas, right adrenal gland, and kidneys are normal. A 1.5 cm left adrenal nodule is stable. No free air, free fluid, or lymphadenopathy is seen in the abdomen or pelvis. There are vascular mario cifications without evidence of aneurysmal dilatation of the abdominal aorta. Degenerative changes a re present in the spine. There are postop changes and metallic hardware in the proximal femurs. The small bowel loops are not abnormally dilated. There is fecal material in the rectosigmoid. There is a 3.5 cm fluid collection posterior to the right proximal femur. This may be due to postop change. However, the possibility of infection cannot be excluded. Clinical correlation is recommend ed. IMPRESSION: 1. Bilateral pleural effusions, right larger than left. Right lower lung consolidation. 2. Stable left adrenal nodule since 2010, likely adenoma. 3. Hiatal hernia. 4. A 2.5 cm fluid collection posterior to the right proximal femur as discussed above. POS: [facility]
== END 2018-10-02 10:22 | disposition home or self-care (01) ==
LOC: NAV CT 10:21
PROVIDERS: ATTEND Internal Medicine
DX: R79.89 Other specified abnormal findings of blood chemistry (principal); J90 Pleural effusion, not elsewhere classified; E27.9 Disorder of adrenal gland, unspecified; K44.9 Diaphragmatic hernia without obstruction or gangrene; M89.9 Disorder of bone, unspecified
CPT/HCPCS: 74177; Q9967

== ENCOUNTER 2018-10-10 13:19 | Emergency (ER) | payer MEDICARE, MEDICAID ==
[2018-10-10 13:52] LABS: #Lymphocytes 0.4 thou/uL (1.20-3.40); #Monocytes 0.7 thou/uL (0.11-0.59); #Neutrophils 7.1 thou/uL (1.40-6.50); %Basophils 0.4 % (0.0-1.0); %Eosinophils 0.2 % (0.0-10.0); %Lymphocytes 4.9 % (21.0-51.0); %Monocytes 8.7 % (0.0-10.0); %Neutrophils 85.7 % (42.0-75.0); Hemoglobin 9.1 g/dL (12.0-16.0); Mean Corpuscular HGB CONC 30.3 g/dL (32.0-36.0); Mean Corpuscular Hemoglobin 28.8 pg (27.0-31.0); Mean Platelet Volume 6.8 fL (7.4-10.4); Platelet Count 213 thou/uL (130-400); RBC Distribution Width 15.2 % (11.5-14.5); Red Blood Cell (RBC) Count 3.17 mill/uL (4.20-5.40); White Blood Cell (WBC) Count 8.2 thou/uL (4.8-10.8)
--- NOTE | 2018-10-10 14:07 | RAD ---
FFrontal radiograph chest: 10/10/2018 COMPARISON: 09/28/2017 HISTORY: Dyspnea, shortness of breath, nervousness FINDINGS: No pneumothorax. Pulmonary vascular congestion and perihilar/bibasilar interstitial prominence. Focal opacity in the right base with obscuration of the right hemidiaphragm, right heart border, and right costophrenic angle suggesting nonspecific right basilar consolidation/collapse and right pleura l fluid. Dual lead transvenous pacing device present, inserted via a left subclavian approach. IMPRESSION: Findings suggesting pulmonary edema. Dense opacity in right base suggests associated cons olidation/collapse, pleural density, and/or infectious pneumonitis/aspiration. Follow-up imaging foll owing treatment to document resolution is advised. Of note, findings are similar when compared to the 09/27/2017 examination
[2018-10-10 14:17] LABS: ALT (SGPT) 124 U/L (8-55); AST (SGOT) 133 U/L (5-34); Albumin 2.9 g/dL (3.4-4.8); Alkaline Phosphatase 161 U/L (40-150); Anion Gap 14 mmol/L (10-20); BUN (Urea Nitrogen) 15 mg/dL (9.8-20.1); Bilirubin, Total 0.7 mg/dL (0.2-1.2); Calc. Creatinine Clearance 0 mL/min (70-130); Calcium 8.6 mg/dL (7.8-10.44); Carbon Dioxide 18 mmol/L (23-31); Chloride 102 mmol/L (98-107); Estimated GFR-MDRD 78; Globulin 2.7 g/dL (2.4-3.5); Glucose 135 mg/dL (83-110); Potassium 4.1 mmol/L (3.5-5.1); Protein, Total 5.6 g/dL (6.0-8.3); Sodium 130 mmol/L (136-145)
[2018-10-10 15:46] LABS: Bilirubin Small (Negative); Blood, Urine Negative (Negative); Glucose, Urine (Dipstick) Negative (Negative); Leukocyte Negative (Negative); Nitrite Negative (Negative); Protein, Urine (Dipstick) 30 mg/dL (Neg-Trace)
[2018-10-10 15:47] LABS: Clarity SL HAZY (Clear)
[2018-10-10 16:02] LABS: RBC/HPF 0-3 HPF (0-3)
[2018-10-10 16:03] LABS: Bacteria/HPF Rare-Few HPF (None Seen); Specific Gravity, Urine 1.023 (1.002-1.036); Squamous Epithelial 0-3 HPF (0-3); WBC/HPF 0-3 HPF (0-3)
[2018-10-10] MEDS ORDERED: Sodium Chloride 0.9% 100 ML ONE (16:23)
[2018-10-10] MEDS ORDERED: cefTRIAXone\\ROCEPHIN 1 GM VIAL ONE (16:23)
== END 2018-10-10 17:00 | disposition short-term general hospital (02) ==
LOC: NAV ERS 13:19
DX: J18.1 Lobar pneumonia, unspecified organism (principal); I11.0 Hypertensive heart disease with heart failure; I50.9 Heart failure, unspecified; I48.91 Unspecified atrial fibrillation; K58.9 Irritable bowel syndrome, unspecified; E10.9 Type 1 diabetes mellitus without complications; K21.9 Gastro-esophageal reflux disease without esophagitis; E78.5 Hyperlipidemia, unspecified; G20 Parkinson's disease; F03.90 Unspecified dementia, unspecified severity, without behavioral disturbance, psychotic disturbance, mood disturbance, and anxiety; F41.9 Anxiety disorder, unspecified; F31.9 Bipolar disorder, unspecified; F20.9 Schizophrenia, unspecified; Z86.73 Personal history of transient ischemic attack (TIA), and cerebral infarction without residual deficits; Z79.1 Long term (current) use of non-steroidal anti-inflammatories (NSAID); Z79.899 Other long term (current) drug therapy; Z79.84 Long term (current) use of oral hypoglycemic drugs
CPT/HCPCS: 51701; 71045; 80053; 81003; 81015; 83605; 83880; 84484; 85025; 87040; 93005; 96360; 96365; J0696; J7050